=== PATIENT | female | born 1980 | race African-American/Black ===

== ENCOUNTER 2023-03-08 17:32 | Inpatient (IN) ==
--- NOTE | 2023-03-08 17:41 | ED Triage Note ---
Date of Service March 08, 2023 History of Present Illness This patient was briefly evaluated while in triage. An abbreviated physical exam was performed. This patient is a 42-year-old Female who presents to the ED for evaluation of hx of blood clot in leg and family hx of clot. Shortness of breath with steps, walking and out of breath. Started with shortness of breath 3 days ago. While making bed heart racing. Notes no history of clotting disorder. Pt. denies chance of . Physical Exam GENERAL: 42 year old female. In no acute distress. SKIN: No lesions or rashes. HEART: Regular rate and rhythm. LUNGS: Clear to auscultation. NEURO: Alert and oriented. No deficits. MUSCULOSKELETAL: No deformities to inspection of the extremities. PSYCH: Patient is pleasant and answers all questions appropriately. Initial orders for labs and / or imaging were placed and patient was placed in the waiting area until a bed is available. Please see further documentation for the full ED course.
[2023-03-08 18:19] LABS: Basophils # (auto) 0.02 K/uL (0.00-0.20); Basophils % (auto) 0.2 %; Eosinophils # (auto) 0.29 K/uL (0.00-0.50); Hematocrit (blood only) 38.4 % (37.0-47.0); Hemoglobin 12.6 g/dl (12.0-16.0); Immature Granulocytes # (auto) 0.03 K/uL (0.01-0.20); Immature Granulocytes % (auto) 0.3 %; Lymphocytes % (auto) 20.5 %; Mean Corpuscular Hemoglobin 26.7 pg (25.0-34.0); Mean Corpuscular Hgb Conc 32.8 g/dL (32.0-36.0); Mean Corpuscular Volume 81.4 fL (80.0-100.0); Monocytes % (auto) 5.1 %; Neutrophils # (auto) 6.91 K/uL (1.40-6.50); Neutrophils % (auto) 70.9 %; Platelet Count 151 K/uL (130-400); RDW Coefficient of Variation 14.2 % (11.5-14.5); RDW Standard Deviation 41.6 fL (36.4-46.3); Red Blood Count 4.72 M/uL (4.20-5.40); White Blood Count 9.75 K/ul (4.8-10.8)
[2023-03-08 18:35] LABS: BUN Creatinine Ratio 14.4 (10-20); Bilirubin,Total 0.5 mg/dl (0.2-1.0); Creatinine Clr Calc Pharmacy 103.9 ml/min; Est GFR (African American) 92.7 ml/min; Globulin 4.1 gm/dl (2.5-4.0); Magnesium 1.8 mg/dl (1.7-2.4); Potassium 3.5 mmol/L (3.5-5.1); Total Protein 8.1 gm/dl (6.0-8.3)
[2023-03-08 18:39] LABS: Troponin I High Sensitivity 48.9 pg/ml (0-14)
[2023-03-08 18:49] LABS: Thyroid Stimulating Hormone 2.663 uIu/ml (0.300-4.500)
[2023-03-08 18:58] LABS: Pregnancy Test, Serum Negative (Negative)
[2023-03-08 19:01] LABS: Partial Thromboplastin Ratio 1.1; Prothrombin Time 10.9 Seconds (9.0-12.0)
[2023-03-08] MEDS ORDERED: OPTIRAY 320 125ml IV ONE (19:04)
--- NOTE | 2023-03-08 19:47 | CT Scan Report ---
Exam(s): CTA CHEST IV Amt: 117ml EXAM: CT Angiography Chest With Intravenous Contrast CLINICAL HISTORY: Reason for exam: Dyspnea, hx of DVT. TECHNIQUE: Axial computed tomographic angiography images of the chest with intravenous contrast. CTDI is 43 mGy and DLP is 982.03 mGy-cm. Automated exposure control was utilized for the study. A dose lowering technique was utilized adhering to the principles of ALARA. MIP reconstructed images were created and reviewed. COMPARISON: No relevant prior studies available. FINDINGS: Pulmonary arteries: The pulmonary arterial tree is well opacified with contrast. There are multiple filling defects in the main left and right pulmonary artery branch points extending into all lobar branches. The clot burden is high. The RV/LV ratio is elevated measuring approximately 1.36. Aorta: The thoracic aorta is nondilated. There is no aneurysm or dissection. Lungs: Unremarkable. No mass. No consolidation. Pleural space: Unremarkable. No significant effusion. No pneumothorax. Heart: The heart is upper normal in size. No pericardial effusion. Bones/joints: Mild degenerative changes in the spine. No acute fracture or subluxation. Soft tissues: Unremarkable. Lymph nodes: Unremarkable. No enlarged lymph nodes. IMPRESSION: 1. The pulmonary arterial tree is well opacified with contrast. There are multiple filling defects in the main left and right pulmonary artery branch points extending into all lobar branches. The clot burden is high. The RV/LV ratio is elevated measuring approximately 1.36. 2. The thoracic aorta is nondilated. There is no aneurysm or dissection. Communications: Call Doctor Pulmonary Embolism Electronically signed by: Sebastian Dumont MD 03/08/23 19:45 PM
[2023-03-08] MEDS ORDERED: Heparin IV Adult Wt-Based Standard WITH Bolus Protocol IV STA (19:52)
[2023-03-08] MEDS ORDERED: HEPARIN SOD (PORCINE) 1000 UNIT/ML IV ONE (20:07)
[2023-03-08] MEDS ORDERED: SODIUM CHLORIDE 0.9% 1,000 ML IV ONE (20:07)
--- NOTE | 2023-03-08 20:10 | Emergency Department Note ---
Impression & Plan Pulmonary emboli, Elevated troponin ED Provider Note NAME: SUTART OLIVAREZ AGE: 42 SEX: F : 1980 ARRIVES VIA: Walk-In INFORMANT: Patient ED PROVIDER(S): Jonathan Watts DO CHIEF COMPLAINT: shortness of breath HPI: Patient is a 42-year-old female who presents to the ER for shortness of breath. She notes that the symptoms initially started about 3 to 4 days ago. She notes she is short of breath with doing basic activities. She consequently came in. She has noticed some chest tightness but feels this has been present much longer and closer to a month. She denies any belly pain, nausea, vomiting, or diarrhea. No dysuria, urgency, or frequency. Denies any coughing up blood, vomiting blood, urinating blood or blood in the stool. No recent surgery or trauma. No previous head bleeds. She does admit to a history of a previous DVT in the right calf within the past year. She was on a blood thinner for 3 months and then stopped. She does admit to recent trips to [place] in [place] since November. No control. Additional history was obtained by who confirms the blood thinner and DVT within the past year. ADDITIONAL HISTORY OBTAINED: Per HPI Chronic Medical/Social Conditions Affecting Care: Per HPI PAST MEDICAL HISTORY:See Below PAST SURGICAL HISTORY:See Below FAMILY HISTORY:See Below SOCIAL HISTORY:See Below HOME MEDICATIONS:See Below ALLERGIES:See Below VITALS:See Below PHYSICAL EXAMINATION: GENERAL: Sitting up in bed, alert, well appearing, well nourished, no distress, non-toxic EYE EXAM: normal conjunctiva. OROPHARYNX: no exudate, no erythema, lips, buccal mucosa, and tongue normal and mucous membranes are moist NECK: supple, no nuchal rigidity, no adenopathy, non-tender LUNGS: Clear to auscultation. Normal chest wall mechanics HEART: no murmurs, S1 normal and S2 normal ABDOMEN: abdomen soft, non-tender, normo-active bowel sounds, no masses, no rebound or guarding. BACK: Back is symmetrical on inspection and there is no deformity, no midline tenderness, no CVA tenderness. SKIN: no rashes and no bruising UPPER EXTREMITIES: upper extremities are grossly normal. LOWER EXTREMITIES: No pitting edema. NEURO EXAM: Normal sensorium, cranial nerves II-XII grossly intact, normal speech, no gross weakness of arms, no gross weakness of legs. MEDICAL DECISION MAKING: Patient is a 42-year-old female with a past medical history of a previous DVT within the past year who presents the ER for shortness of breath and chest pain. IV was established blood was obtained. Labs show no significant leukocytosis or anemia. INR unremarkable. BMP was unremarkable. LFTs bilirubin were normal. Troponin was elevated at 48. BNP at 84. hCG was negative. TSH was unremarkable. CT angio of the chest shows extensive bilateral PEs but no saddle. Patient has no bleeding risk factors and tolerated blood thinners well within the past year. She was placed on heparin and given a heparin bolus and placed on heparin drip. Patient was updated at bedside. Discussed the case with the hospitalist for further evaluation management treatment External Records Reviewed: None Consults/Care Managements Discussions: Per [facility] Triage Nursing notes reviewed. Limited review of prior medical records performed Vital Signs: reviewed and remarkable for tachycardic Differential diagnosis: Cardiac ischemia, aortic dissection, pulmonary embolism, pneumothorax, pneumonia, pericarditis, myocarditis, esophageal rupture, GERD, cholecystitis, pancreatitis, musculoskeletal, as well as other pathologies. ER treatment provided: See below Diagnostics interpreted by me include EKG and cardiac monitoring as listed below: -Cardiac Monitoring: An order was placed for continuous cardiac monitoring. The monitor shows a rate of 89 with sinus rhythm. -ECG: Sinus rhythm rate of 95 Normal axis No PVCs QTc 487 -Laboratory studies:Interpreted by me as stated above in MDM and shown below. Imaging studies: Xrays: As interpreted by me:none CTs show: CT angio of the chest shows extensive bilateral PEs per my interpretation CT angio chest shows bilateral PEs Procedures:none Critical Care: I have personally spent 40 minutes of critical care time in the direct management of this patient. This includes bedside care, interpretation of diagnostic studies, and testing, discussion with consultants, patient, and family members, and other required patient management activities. This 40 minutes is in excess of all separately billable procedures. Past Med/Surg History Medical History DVT (deep venous thrombosis) Surgical History No pertinent past surgical history Family History Other Hypertension Pancreatic cancer Social History Smoking Status: Never smoker Hx Alcohol Use: Yes Alcohol Intake Frequency: 2-4 x/Month Preferred Language: Liberian Feels Safe at Home: Yes Allergies Allergies Allergy/AdvReac Type Severity Reaction Status Date / Time No Known Allergies Allergy Verified 03/08/23 20:18 Home Meds Home Medications Medication Instructions Recorded Confirmed Msm Powder 1 dose PO DAILY 03/08/23 03/08/23 ascorbic acid (vitamin C) 500 mg 500 mg PO DAILY 03/08/23 03/08/23 tablet (Vitamin C) multivitamin 1 tab PO DAILY 03/08/23 03/08/23 Results & Data (ED) Vital Signs Vital Signs - 24 hr 03/08/23 17:37 03/08/23 20:00 03/08/23 20:01 Temperature 36.5 C Temperature Source Temporal Artery Scan Pulse Rate 118 H 93 H Pulse Rate [Apical] 87 Pulse Rate from SpO2 Sensor 100 H Respiratory Rate 20 20 22 Respiratory Effort / Characteristics Non-Labored Spontaneous Non-Labored Respiratory Depth Normal Blood Pressure 138/97 Blood Pressure [Right Arm] 132/81 Blood Pressure Mean 110 Blood Pressure Mean [Right Arm] 98 Blood Pressure Position Sitting Pulse Oximetry 96 98 96 Oxygen Delivery Method Room Air Room Air Sepsis Recent Fever Within 48 Hours No Sepsis New/Unexplained Change in Mental Status No Sepsis Action Taken by Nursing No Action Required 03/08/23 20:02 03/08/23 20:13 Temperature Temperature Source Pulse Rate 100 H Pulse Rate [Apical] Pulse Rate from SpO2 Sensor Respiratory Rate Respiratory Effort / Characteristics Respiratory Depth Blood Pressure Blood Pressure [Right Arm] Blood Pressure Mean Blood Pressure Mean [Right Arm] Blood Pressure Position Pulse Oximetry 98 Oxygen Delivery Method Room Air Sepsis Recent Fever Within 48 Hours Sepsis New/Unexplained Change in Mental Status Sepsis Action Taken by Nursing Laboratory Data 03/08/23 17:57 03/08/23 17:57 Lab Results 03/08/23 Range/Units 17:57 WBC 9.75 (4.8-10.8) K/ul RBC 4.72 (4.20-5.40) M/uL Hgb 12.6 (12.0-16.0) g/dl Hct 38.4 (37.0-47.0) % MCV 81.4 (80.0-100.0) fL MCH 26.7 (25.0-34.0) pg MCHC 32.8 (32.0-36.0) g/dL RDW Std Deviation 41.6 (36.4-46.3) fL RDW Coeff of Joaquim 14.2 (11.5-14.5) % Plt Count 151 (130-400) K/uL MPV 11.0 (9.4-12.4) fL Immature Gran % (Auto) 0.3 % Neut % (Auto) 70.9 % Lymph % (Auto) 20.5 % Yell % (Auto) 5.1 % Eos % (Auto) 3.0 % Baso % (Auto) 0.2 % Neut # (Auto) 6.91 H (1.40-6.50) K/uL Lymph # (Auto) 2.00 (1.20-3.40) K/uL Yell # (Auto) 0.50 (0.11-0.59) K/uL Eos # (Auto) 0.29 (0.00-0.50) K/uL Baso # (Auto) 0.02 (0.00-0.20) K/uL Immature Gran # (Auto) 0.03 (0.01-0.20) K/uL PT 10.9 (9.0-12.0) Seconds INR 1.0 (0.9-1.1) APTT 31.0 (21.0-31.0) Seconds PTT Ratio 1.1 Sodium 137 (136-145) mmol/L Potassium 3.5 (3.5-5.1) mmol/L Chloride 106 (98-107) mmol/L Carbon Dioxide 24 (21-32) mmol/L Anion Gap 7 (3-11) BUN 13 (6-23) mg/dl Creatinine 0.90 (0.6-1.2) mg/dl Est Cr Clr Drug Dosing 103.9 ml/min Est GFR ( Amer) 92.7 ml/min Est GFR (Non-Af Amer) 80.0 ml/min BUN/Creatinine Ratio 14.4 (10-20) Glucose 100 H (70-99(Fasting)) mg/dl Calcium 9.0 (8.6-10.3) mg/dl Magnesium 1.8 (1.7-2.4) mg/dl Total Bilirubin 0.5 (0.2-1.0) mg/dl AST 13 (13-39) U/L ALT 9 (7-52) U/L Alkaline Phosphatase 80 (34-104) U/L Troponin I High Sens 48.9 H (0-14) pg/ml B-Natriuretic Peptide 84 (0-100) pg/ml Total Protein 8.1 (6.0-8.3) gm/dl Albumin 4.0 (3.4-5.0) gm/dl Globulin 4.1 H (2.5-4.0) gm/dl Albumin/Globulin Ratio 1.0 (0.9-2) TSH 2.663 (0.300-4.500) uIu/ml HCG, Qual Negative (Negative) Administered Medications Heparin Sodium/Dextrose (Heparin Sodium/Dextrose) 25,000 units in 500 mls @ 28 mls/hr IV .[id number] MYRA; Protocol Stop: 04/07/23 20:14 Last Admin: 03/08/23 20:15 Dose: 1,400 units/hr, 28 mls/hr Documented By: AMANDA Co-signed By: ANSHUL Discontinued Medications Heparin Sodium (Porcine) (Heparin Sod (Porcine) 1000 Unit/Ml) 1 units IV NOW ONE Stop: 03/08/23 20:08 Last Admin: 03/08/23 20:31 Dose: 1 units Documented By: ANSHUL Co-signed By: Heparin Sodium (Porcine) (Heparin Ivp From Ufh Protocol (With Bolus)) 6,000 units IV NOW ONE Stop: 03/08/23 20:16 Last Admin: 03/08/23 20:15 Dose: 6,000 units Documented By: AMANDA Co-signed By: ANSHUL Heparin Sodium/Dextrose (Heparin Iv Adult Wt-Based Standard With Bolus Protocol) 1 each IV NOW STA; Protocol Stop: 03/08/23 19:53 Last Admin: 03/08/23 20:31 Dose: 1 each Documented By: ANSHUL Sodium Chloride (Nss) 1,000 mls @ 999 mls/hr IV .[id number] ONE Stop: 03/08/23 21:07 Last Admin: 03/08/23 20:24 Dose: 999 mls/hr Documented By: AMANDA Ioversol (Optiray 320 125ml) 117 ml IV ONCE ONE Stop: 03/08/23 19:05 Last Admin: 03/08/23 19:04 Dose: 117 ml Documented By: DEISY Imaging Data Radiologist's Impression: Chest CTA 03/08/23 17:42 CR Exam(s): CTA CHEST IV Amt: 117ml EXAM: CT Angiography Chest With Intravenous Contrast CLINICAL HISTORY: Reason for exam: Dyspnea, hx of DVT. TECHNIQUE: Axial computed tomographic angiography images of the chest with intravenous contrast. CTDI is 43 mGy and DLP is 982.03 mGy-cm. Automated exposure control was utilized for the study. A dose lowering technique was utilized adhering to the principles of ALARA. MIP reconstructed images were created and reviewed. COMPARISON: No relevant prior studies available. FINDINGS: Pulmonary arteries: The pulmonary arterial tree is well opacified with contrast. There are multiple filling defects in the main left and right pulmonary artery branch points extending into all lobar branches. The clot burden is high. The RV/LV ratio is elevated measuring approximately 1.36. Aorta: The thoracic aorta is nondilated. There is no aneurysm or dissection. Lungs: Unremarkable. No mass. No consolidation. Pleural space: Unremarkable. No significant effusion. No pneumothorax. Heart: The heart is upper normal in size. No pericardial effusion. Bones/joints: Mild degenerative changes in the spine. No acute fracture or subluxation. Soft tissues: Unremarkable. Lymph nodes: Unremarkable. No enlarged lymph nodes. IMPRESSION: 1. The pulmonary arterial tree is well opacified with contrast. There are multiple filling defects in the main left and right pulmonary artery branch points extending into all lobar branches. The clot burden is high. The RV/LV ratio is elevated measuring approximately 1.36. 2. The thoracic aorta is nondilated. There is no aneurysm or dissection. Communications: Call Doctor Pulmonary Embolism Electronically signed by: Sebastian Dumont MD 03/08/23 19:45 PM Discharge Plan Visit Data Chief Complaint: Shortness of Breath/Dyspnea Stated Complaint: SOB, CHEST PRESSURE, HEART RACING ED Provider: Jonathan Watts Discharge Problem: Pulmonary emboli, Elevated troponin Forms Stand Alone Forms: My [facility] Prescriptions Prescriptions: No Action multivitamin Tablet 1 tab PO DAILY ascorbic acid (vitamin C) [Vitamin C] 500 mg Tablet 500 mg PO DAILY Msm Powder 1 dose PO DAILY Rx Instructions: MIXES 1/4 TSP IN FLUID QAM. Referrals Referrals: PCP,NO [Primary Care Provider] -
[2023-03-08] MEDS ORDERED: Heparin IVP from UFH Protocol (WITH Bolus) IV ONE (20:15)
[2023-03-08] MEDS ORDERED: HEPARIN SODIUM/DEXTROSE 25,000 UNITS/500 ML BAG IV SCH (20:15)
[2023-03-08] MEDS ORDERED: MAGNESIUM SULFATE / D5W 1 GM/100 ML BAG IV ONE (20:33)
[2023-03-08] MEDS ORDERED: POTASSIUM CHLORIDE CRTAB 20 MEQ TABCR PO STA (20:33)
[2023-03-08] MEDS ORDERED: NSS + 20MEQ KCL 20 MEQ/1,000 ML BAG IV ONE (20:34)
--- NOTE | 2023-03-08 21:24 | History & Physical Report ---
Date of Service March 08, 2023 Assessment & Plan (1) Pulmonary emboli: (2) Elevated troponin: (3) Morbid obesity with BMI of 45.0-49.9, adult: Plan This is a 42yo F with a PMH of RLE DVT, obesity who presents with shortness of breath over the past 3-4 days and was found to have extensive pulmonary emboli. Please see Dr. Parker's addendum for plan details. History of Present Illness Chief Complaint: SOB Primary Care Provider: Dr. Pyle This is a 42yo F with a PMH of RLE DVT, obesity who presents with shortness of breath over the past 3-4 days. Feels notably short of breath even while doing basic activities and feels like she cannot get enough air even with stopping to take deep breaths. Has some associated chest tightness. Has a sedentary job and endorses recent travel but it was only 3-[address] to [place] and [place]. Is not on control. Does have history of a RLE DVT diagnosed in Apr 2021 that she completed 6 months of Xarelto for and at that time repeat doppler without acute DVT. Factor V leiden: not detected. Father with history of May Thurner Syndrome on lifelong anticoagulation, per chart review. Aunt is also on anticoagulation but she is not sure of underlying reason. No F/C, lightheadedness, wheezing, N/V, abdominal pain, dysuria, diarrhea or constipation. Allergies Allergy/AdvReac Type Severity Reaction Status Date / Time No Known Allergies Allergy Verified 03/08/23 20:18 Home Medications Medication Instructions Recorded Confirmed Type Msm Powder 1 dose PO DAILY 03/08/23 03/08/23 History ascorbic acid (vitamin C) 500 mg 500 mg PO DAILY 03/08/23 03/08/23 History tablet (Vitamin C) multivitamin 1 tab PO DAILY 03/08/23 03/08/23 History Past Med/Surg History Medical History DVT (deep venous thrombosis) Surgical History No pertinent past surgical history Family History (Updated 03/08/23 @ 22:40 by Cherie Dumont PA-C) Other H/O hypercoagulable state Hypertension Pancreatic cancer Social History Smoking Status: Never smoker Second Hand Exposure: No; Do You Dip or Chew Tobacco: No; Hx Alcohol Use: Yes Alcohol type: beer Alcohol Intake Frequency: 2-4 x/Month Hx Substance Use: No Preferred Language: Samoan Communication Ability: Effective Assistant Secretary Required: No Beliefs That Will Affect Care: None Current Living Situation: Spouse and Family Current Living Situation Comment: at home with and 2 children Other Information That Helps Us Care for You: No Feels Safe at Home: Yes Safety Concerns: Feels Safe At This Time Assistive Devices: None Review of Systems Review of Systems: At least ten systems reviewed and negative except as noted in the HPI. Physical Exam Physical Exam: General Appearance: WD/WN, vitals as above, NAD, sitting up in bed, pleasant, obese, conversational dyspnea Head: normocephalic, atraumatic Eyes: normal inspection, PERRL, conjunctivae normal, anicteric sclerae ENT: external ear and nose normal, oropharynx normal Neck: normal visual inspection, trachea midline, no thyromegaly Respiratory: increased respiratory effort, lungs clear to auscultation, no wheeze, rales, rhonchi. No accessory muscle use Cardiovascular: regular rate, rhythm, no murmur, normal peripheral pulses, no BLE edema. Vessels: no JVD Chest: normal inspection of chest Abdomen/GI: normal bowel sounds, soft, nontender, no hepatosplenomegaly Extremities/Musculoskeletal: no cyanosis or clubbing, extremities motor strength 5/5 Neurologic: PERRL, EOMI, accommodation nl, no face palsy, no dysarthria, CN's II-XI intact bilaterally and moves all extremities Psychiatric: A+Ox3, euthymic affect Skin: no rashes, normal color, warm/dry Results & Data Results & Data Vital Signs (Past 12 Hours) Vital Signs Temp Pulse Pulse Resp BP BP Pulse Ox 03/08/23 20:13 100 H 03/08/23 20:02 98 03/08/23 20:01 93 H 22 96 03/08/23 20:00 87 20 132/81 98 03/08/23 17:37 36.5 C 118 H 20 138/97 96 O2 Del Method 03/08/23 20:13 03/08/23 20:02 Room Air 03/08/23 20:01 03/08/23 20:00 Room Air 03/08/23 17:37 Room Air Laboratory Results Short CBC 03/08/23 Range/Units 17:57 WBC 9.75 (4.8-10.8) K/ul Hgb 12.6 (12.0-16.0) g/dl Hct 38.4 (37.0-47.0) % Plt Count 151 (130-400) K/uL BMP 03/08/23 17:57 Sodium 137 Potassium 3.5 Chloride 106 Carbon Dioxide 24 BUN 13 Creatinine 0.90 Glucose 100 H Calcium 9.0 Liver Function 03/08/23 Range/Units 17:57 Total Bilirubin 0.5 (0.2-1.0) mg/dl AST 13 (13-39) U/L ALT 9 (7-52) U/L Alkaline Phosphatase 80 (34-104) U/L Albumin 4.0 (3.4-5.0) gm/dl Diagnostic Findings Chest CTA 03/08/23 17:42 CR Exam(s): CTA CHEST IV Amt: 117ml EXAM: CT Angiography Chest With Intravenous Contrast CLINICAL HISTORY: Reason for exam: Dyspnea, hx of DVT. TECHNIQUE: Axial computed tomographic angiography images of the chest with intravenous contrast. CTDI is 43 mGy and DLP is 982.03 mGy-cm. Automated exposure control was utilized for the study. A dose lowering technique was utilized adhering to the principles of ALARA. MIP reconstructed images were created and reviewed. COMPARISON: No relevant prior studies available. FINDINGS: Pulmonary arteries: The pulmonary arterial tree is well opacified with contrast. There are multiple filling defects in the main left and right pulmonary artery branch points extending into all lobar branches. The clot burden is high. The RV/LV ratio is elevated measuring approximately 1.36. Aorta: The thoracic aorta is nondilated. There is no aneurysm or dissection. Lungs: Unremarkable. No mass. No consolidation. Pleural space: Unremarkable. No significant effusion. No pneumothorax. Heart: The heart is upper normal in size. No pericardial effusion. Bones/joints: Mild degenerative changes in the spine. No acute fracture or subluxation. Soft tissues: Unremarkable. Lymph nodes: Unremarkable. No enlarged lymph nodes. IMPRESSION: 1. The pulmonary arterial tree is well opacified with contrast. There are multiple filling defects in the main left and right pulmonary artery branch points extending into all lobar branches. The clot burden is high. The RV/LV ratio is elevated measuring approximately 1.36. 2. The thoracic aorta is nondilated. There is no aneurysm or dissection. Communications: Call Doctor Pulmonary Embolism Electronically signed by: Sebastian Dumont MD 03/08/23 19:45 PM Supervising Physician Co-Signing Physician Notes IM ATTENDING : Patient seen and examined. History obtained from patient, family, and records. Preceding documentation by Ms. Cherie Dumont PA-C reviewed. FINAL ASSESSMENT AND PLAN as follows : Acute pulmonary emboli Past history RLE DVT status post Xarelto Probable hypercoagulable state given family history of blood clots Rule out recurrent LE clot as source Morbid obesity Medical telemetry IV heparin Patient requesting to be discharged on Xarelto given good tolerance with past history DVT LE venous Dopplers rule out DVT Outpatient Hematology consult for recurrent thromboembolism DVT prophylaxis. Heparin Full code Text document was generated using [employer] voice recognition software. It may contain grammatical or spelling errors. Kindly contact undersigned for clarification of any documentation item in question.
[2023-03-08] MEDS ORDERED: traMADol HCL 50 MG TABLET PO PRN (22:02)
[2023-03-08] MEDS ORDERED: LORazepam 0.5 MG TAB PO PRN (22:02)
[2023-03-08] MEDS ORDERED: PROMETHAZINE HCL 12.5 MG in SODIUM CHLORIDE 0.9% 50 ML IV PRN (22:02)
--- NOTE | 2023-03-08 23:31 | Ultrasound Report ---
Exam(s): US VENOUS BILATERAL LOWER EXTREMITIES EXAM: US Duplex Bilateral Lower Extremities Veins CLINICAL HISTORY: Reason for exam: leg swelling. TECHNIQUE: Real-time duplex ultrasound scan of the bilateral lower extremity veins integrating B-mode two-dimensional vascular structure, Doppler spectral analysis, color flow Doppler imaging and compression. COMPARISON: No relevant prior studies available. FINDINGS: Right deep veins: There is chronic appearing thrombosis of 1 of the 2 paired right posterior tibial veins. Right superficial veins: Unremarkable. No thrombus in the visualized right great saphenous vein. Left deep veins: Small amount of nonocclusive chronic appearing thrombus in the left femoral vein inferiorly and left popliteal vein. No acute appearing DVT is identified. Left superficial veins: Unremarkable. No thrombus in the visualized left great saphenous vein. Soft tissues: There is a Falcon's cyst measuring approximate 3.2 cm in the right popliteal fossa. IMPRESSION: 1. There is chronic appearing thrombosis of 1 of the 2 paired right posterior tibial veins. 2. Small amount of nonocclusive chronic appearing thrombus in the left femoral vein inferiorly and left popliteal vein. No acute appearing DVT is identified. 3. There is a Falcon's cyst measuring approximate 3.2 cm in the right popliteal fossa. Electronically signed by: Sebastian Dumont MD 03/08/23 23:29 PM
[2023-03-09] MEDS ORDERED: ACETAMINOPHEN 325 MG TAB PO PRN (00:38)
[2023-03-09 02:24] LABS: Basophils # (auto) 0.03 K/uL (0.00-0.20); Basophils % (auto) 0.3 %; Eosinophils # (auto) 0.32 K/uL (0.00-0.50); Eosinophils % (auto) 3.4 %; Hematocrit (blood only) 34.3 % (37.0-47.0); Hemoglobin 11.3 g/dl (12.0-16.0); Immature Granulocytes # (auto) 0.03 K/uL (0.01-0.20); Immature Granulocytes % (auto) 0.3 %; Lymphocytes # (auto) 2.43 K/uL (1.20-3.40); Lymphocytes % (auto) 25.8 %; Mean Corpuscular Hemoglobin 26.7 pg (25.0-34.0); Mean Corpuscular Hgb Conc 32.9 g/dL (32.0-36.0); Mean Corpuscular Volume 81.1 fL (80.0-100.0); Mean Platelet Volume 10.4 fL (9.4-12.4); Monocytes # (auto) 0.56 K/uL (0.11-0.59); Monocytes % (auto) 5.9 %; Neutrophils # (auto) 6.06 K/uL (1.40-6.50); Neutrophils % (auto) 64.3 %; Platelet Count 132 K/uL (130-400); RDW Coefficient of Variation 13.9 % (11.5-14.5); RDW Standard Deviation 40.7 fL (36.4-46.3); Red Blood Count 4.23 M/uL (4.20-5.40); White Blood Count 9.43 K/ul (4.8-10.8)
[2023-03-09 02:41] LABS: BUN Creatinine Ratio 11.8 (10-20); Calcium 8.3 mg/dl (8.6-10.3); Creatinine Clr Calc Pharmacy 123.1 ml/min; Est GFR (African American) 113.7 ml/min; Est GFR (Non-African American) 98.1 ml/min
[2023-03-09 02:48] LABS: Partial Thromboplastin Ratio 2.6
[2023-03-09] MEDS: MULTIVITAMIN TAB PO SCH (08:29)
[2023-03-09 09:17] LABS: Partial Thromboplastin Ratio 1.9
[2023-03-09 09:21] LABS: Partial Thromboplastin Time 53.6 Seconds (21.0-31.0)
[2023-03-09] MEDS ORDERED: ENOXAPARIN 1 MG/KG SQ SCH (13:30)
[2023-03-09 15:13] LABS: Partial Thromboplastin Ratio 1.2; Partial Thromboplastin Time 33.9 Seconds (21.0-31.0)
--- NOTE | 2023-03-09 15:25 | Hospitalist Progress Note ---
Date of Service March 09, 2023 Assessment & Plan (1) Pulmonary emboli: (2) Elevated troponin: (3) Morbid obesity with BMI of 45.0-49.9, adult: (4) Pulmonary hypertension: Plan This is a 42yo F with a PMH of RLE DVT, obesity who presents with shortness of breath over the past 3-4 days and was found to have extensive pulmonary emboli. CTA chest personally reviewed; multiple filling defects present in main left and right pulmonary artery extending into all lobar branches. High sensitive troponin elevated to 48.9, down trended to 19.5 EKG personally reviewed; sinus rhythm with occasional PVCs. QTc of 487 Echocardiogram suggestive of right heart strain. Severe pulmonary hypertension present with pulmonary artery systolic pressure of 70 to 75 mmHg. Venous duplex shows chronic appearing thrombosis in right posterior tibial veins. Also present in left femoral vein and left popliteal vein. Discussed with cardiology regarding the finding of the echocardiogram. Patient will need outpatient echocardiogram in 3 months to follow-up on severe pulmonary hypertension. Patient will likely need lifelong anticoagulation for the bilateral unprovoked PE Continue on Lovenox while inpatient. Continue to monitor on telemetry Xarelto prescription sent to the pharmacy. patient will need age-appropriate cancer screening as outpatient as well as hematology referral for hypercoagulable workup. Full code DVT prophylaxis Lovenox Dispositionpatient hospitalized for bilateral extensive PE with right heart strain requiring closer inpatient monitoring. Possible DC in a.m. Depending on clinical course. Time spent evaluating patient, direct bedside care, chart review, placing orders, interpretation of diagnostic studies, discussion with consultants, patient, and family members, as well as other required patient management activities is 50 minutes Please note the above document was generated using voice recognition software. It may contain grammatical, syntax or spelling errors. Any formal questions or concerns about the content, text or information contained within the body of this dictation should be directly addressed to the provider for clarification Admission and Anticipated Discharge Date Admission Date: March 08, 2023 Subjective Patient seen and examined at bedside. She is sitting on the bed; denies any shortness of breath or chest pain. Telemetry shows sinus tachycardia Review of Systems Review of Systems: All systems reviewed & are unremarkable except as noted in Subjective Physical Exam Physical Exam: Constitutional: Alert orient x 3, morbidly obese. Respiratory: normal respiratory effort, lungs clear to auscultation, no wheeze, rales, rhonchi. Normal insp/exp effort, no accessory muscle use Cardiovascular: RRR, no murmur, no edema Vessels: no JVD or carotid bruit Chest: normal inspection of chest Abdomen: normal bowel sounds, soft, nontender, no hepatosplenomegaly Musculoskeletal: no cyanosis or clubbing, extremities motor strength 5/5 Skin: no rashes, warm and dry normal turgor Neurologic: PERRL, EOMI, accommodation nl, no face palsy, no dysarthria CN's II- XI intact bilaterally and moves all extremities Psychiatric: A+Ox3, euthymic affect Results & Data Results & Data Vital Signs (Past 12 Hours) Vital Signs Pulse Pulse Resp BP BP Pulse Ox O2 Del Method 03/09/23 10:28 127/89 03/09/23 10:09 115 H 20 93 Room Air 03/09/23 08:34 79 16 98 Room Air 03/09/23 08:01 82 03/09/23 06:00 89 23 136/92 100 Room Air 03/09/23 05:00 87 22 125/87 93 Room Air 03/09/23 04:00 99 H 23 134/89 97 Room Air Laboratory Results Laboratory Results WBC 9.43 K/ul (4.8-10.8) 03/09/23 02:16 RBC 4.23 M/uL (4.20-5.40) 03/09/23 02:16 Hgb 11.3 g/dl (12.0-16.0) L 03/09/23 02:16 Hct 34.3 % (37.0-47.0) L 03/09/23 02:16 MCV 81.1 fL (80.0-100.0) 03/09/23 02:16 MCH 26.7 pg (25.0-34.0) 03/09/23 02:16 MCHC 32.9 g/dL (32.0-36.0) 03/09/23 02:16 RDW Std Deviation 40.7 fL (36.4-46.3) 03/09/23 02:16 RDW Coeff of Joaquim 13.9 % (11.5-14.5) 03/09/23 02:16 Plt Count 132 K/uL (130-400) 03/09/23 02:16 MPV 10.4 fL (9.4-12.4) 03/09/23 02:16 Immature Gran % (Auto) 0.3 % 03/09/23 02:16 Neut % (Auto) 64.3 % 03/09/23 02:16 Lymph % (Auto) 25.8 % 03/09/23 02:16 [place] % (Auto) 5.9 % 03/09/23 02:16 Eos % (Auto) 3.4 % 03/09/23 02:16 Baso % (Auto) 0.3 % 03/09/23 02:16 Neut # (Auto) 6.06 K/uL (1.40-6.50) 03/09/23 02:16 Lymph # (Auto) 2.43 K/uL (1.20-3.40) 03/09/23 02:16 [place] # (Auto) 0.56 K/uL (0.11-0.59) 03/09/23 02:16 Eos # (Auto) 0.32 K/uL (0.00-0.50) 03/09/23 02:16 Baso # (Auto) 0.03 K/uL (0.00-0.20) 03/09/23 02:16 Immature Gran # (Auto) 0.03 K/uL (0.01-0.20) 03/09/23 02:16 PT 10.9 Seconds (9.0-12.0) 03/08/23 17:57 INR 1.0 (0.9-1.1) 03/08/23 17:57 APTT 33.9 Seconds (21.0-31.0) H 03/09/23 14:15 PTT Ratio 1.2 03/09/23 14:15 Sodium 137 mmol/L (136-145) 03/09/23 02:16 Potassium 4.0 mmol/L (3.5-5.1) 03/09/23 02:16 Chloride 110 mmol/L (98-107) H 03/09/23 02:16 Carbon Dioxide 21 mmol/L (21-32) 03/09/23 02:16 Anion Gap 6 (3-11) 03/09/23 02:16 BUN 9 mg/dl (6-23) 03/09/23 02:16 Creatinine 0.76 mg/dl (0.6-1.2) 03/09/23 02:16 Est Cr Clr Drug Dosing 123.1 ml/min 03/09/23 02:16 Est GFR ( Amer) 113.7 ml/min 03/09/23 02:16 Est GFR (Non-Af Amer) 98.1 ml/min 03/09/23 02:16 BUN/Creatinine Ratio 11.8 (10-20) 03/09/23 02:16 Glucose 102 mg/dl (70-99(Fasting)) H 03/09/23 02:16 Calcium 8.3 mg/dl (8.6-10.3) L 03/09/23 02:16 Magnesium 1.8 mg/dl (1.7-2.4) 03/08/23 17:57 Total Bilirubin 0.5 mg/dl (0.2-1.0) 03/08/23 17:57 AST 13 U/L (13-39) 03/08/23 17:57 ALT 9 U/L (7-52) 03/08/23 17:57 Alkaline Phosphatase 80 U/L (34-104) 03/08/23 17:57 Troponin I High Sens 19.5 pg/ml (0-14) H D 03/09/23 09:55 B-Natriuretic Peptide 84 pg/ml (0-100) 03/08/23 17:57 Total Protein 8.1 gm/dl (6.0-8.3) 03/08/23 17:57 Albumin 4.0 gm/dl (3.4-5.0) 03/08/23 17:57 Globulin 4.1 gm/dl (2.5-4.0) H 03/08/23 17:57 Albumin/Globulin Ratio 1.0 (0.9-2) 03/08/23 17:57 TSH 2.663 uIu/ml (0.300-4.500) 03/08/23 17:57 HCG, Qual Negative (Negative) 03/08/23 17:57 Impressions Chest CTA 03/08/23 17:42 CR Exam(s): CTA CHEST IV Amt: 117ml EXAM: CT Angiography Chest With Intravenous Contrast CLINICAL HISTORY: Reason for exam: Dyspnea, hx of DVT. TECHNIQUE: Axial computed tomographic angiography images of the chest with intravenous contrast. CTDI is 43 mGy and DLP is 982.03 mGy-cm. Automated exposure control was utilized for the study. A dose lowering technique was utilized adhering to the principles of ALARA. MIP reconstructed images were created and reviewed. COMPARISON: No relevant prior studies available. FINDINGS: Pulmonary arteries: The pulmonary arterial tree is well opacified with contrast. There are multiple filling defects in the main left and right pulmonary artery branch points extending into all lobar branches. The clot burden is high. The RV/LV ratio is elevated measuring approximately 1.36. Aorta: The thoracic aorta is nondilated. There is no aneurysm or dissection. Lungs: Unremarkable. No mass. No consolidation. Pleural space: Unremarkable. No significant effusion. No pneumothorax. Heart: The heart is upper normal in size. No pericardial effusion. Bones/joints: Mild degenerative changes in the spine. No acute fracture or subluxation. Soft tissues: Unremarkable. Lymph nodes: Unremarkable. No enlarged lymph nodes. IMPRESSION: 1. The pulmonary arterial tree is well opacified with contrast. There are multiple filling defects in the main left and right pulmonary artery branch points extending into all lobar branches. The clot burden is high. The RV/LV ratio is elevated measuring approximately 1.36. 2. The thoracic aorta is nondilated. There is no aneurysm or dissection. Communications: Call Doctor Pulmonary Embolism Electronically signed by: Sebastian Dumont MD 03/08/23 19:45 PM Venous Doppler Study 03/08/23 21:06 Exam(s): US VENOUS BILATERAL LOWER EXTREMITIES EXAM: US Duplex Bilateral Lower Extremities Veins CLINICAL HISTORY: Reason for exam: leg swelling. TECHNIQUE: Real-time duplex ultrasound scan of the bilateral lower extremity veins integrating B-mode two-dimensional vascular structure, Doppler spectral analysis, color flow Doppler imaging and compression. COMPARISON: No relevant prior studies available. FINDINGS: Right deep veins: There is chronic appearing thrombosis of 1 of the 2 paired right posterior tibial veins. Right superficial veins: Unremarkable. No thrombus in the visualized right great saphenous vein. Left deep veins: Small amount of nonocclusive chronic appearing thrombus in the left femoral vein inferiorly and left popliteal vein. No acute appearing DVT is identified. Left superficial veins: Unremarkable. No thrombus in the visualized left great saphenous vein. Soft tissues: There is a Falcon's cyst measuring approximate 3.2 cm in the right popliteal fossa. IMPRESSION: 1. There is chronic appearing thrombosis of 1 of the 2 paired right posterior tibial veins. 2. Small amount of nonocclusive chronic appearing thrombus in the left femoral vein inferiorly and left popliteal vein. No acute appearing DVT is identified. 3. There is a Falcon's cyst measuring approximate 3.2 cm in the right popliteal fossa. Electronically signed by: Sebastian Dumont MD 03/08/23 23:29 PM
[2023-03-09] MEDS: ENOXAPARIN INJ 120 MG/0.8 ML SYR SQ SCH (15:33)
[2023-03-10] MEDS: ENOXAPARIN INJ 120 MG/0.8 ML SYR SQ SCH (02:06)
--- NOTE | 2023-03-10 07:07 | Electrocardiogram Report ---
Test Reason : Blood Pressure : / mmHG Vent. Rate : 095 BPM Atrial Rate : 095 BPM P-R Int : 162 ms QRS Dur : 072 ms QT Int : 388 ms P-R-T Axes : 038 007 040 degrees QTc Int : 487 ms Sinus rhythm Low voltage QRS Prolonged QT Abnormal ECG No previous ECGs available Confirmed by Car Phillips ([id number]) on 03/10/2023 7:07:27 AM Referred By: REFERRED SELF Confirmed By:Car Phillips
[2023-03-10 07:15] LABS: Basophils # (auto) 0.04 K/uL (0.00-0.20); Basophils % (auto) 0.6 %; Eosinophils # (auto) 0.31 K/uL (0.00-0.50); Eosinophils % (auto) 4.3 %; Hematocrit (blood only) 36.4 % (37.0-47.0); Immature Granulocytes # (auto) 0.04 K/uL (0.01-0.20); Immature Granulocytes % (auto) 0.6 %; Lymphocytes # (auto) 2.02 K/uL (1.20-3.40); Lymphocytes % (auto) 27.9 %; Mean Corpuscular Hemoglobin 26.4 pg (25.0-34.0); Mean Corpuscular Volume 80.2 fL (80.0-100.0); Mean Platelet Volume 10.9 fL (9.4-12.4); Monocytes # (auto) 0.47 K/uL (0.11-0.59); Monocytes % (auto) 6.5 %; Neutrophils # (auto) 4.36 K/uL (1.40-6.50); Neutrophils % (auto) 60.1 %; Platelet Count 149 K/uL (130-400); RDW Coefficient of Variation 14.1 % (11.5-14.5); RDW Standard Deviation 41.1 fL (36.4-46.3); Red Blood Count 4.54 M/uL (4.20-5.40); White Blood Count 7.24 K/ul (4.8-10.8)
[2023-03-10 07:41] LABS: BUN Creatinine Ratio 8.7 (10-20); Creatinine Clr Calc Pharmacy 101.2 ml/min; Est GFR (African American) 90.3 ml/min; Est GFR (Non-African American) 77.9 ml/min; Potassium 4.1 mmol/L (3.5-5.1)
[2023-03-10] MEDS: MULTIVITAMIN TAB PO SCH (08:42)
[2023-03-10] MEDS ORDERED: RIVAROXABAN 15 MG TAB PO SCH (09:00)
--- NOTE | 2023-03-10 12:41 | Discharge Summary ---
Date of Service March 10, 2023 Admission HPI Per Admitting Provider This is a 42yo F with a PMH of RLE DVT, obesity who presents with shortness of breath over the past 3-4 days. Feels notably short of breath even while doing basic activities and feels like she cannot get enough air even with stopping to take deep breaths. Has some associated chest tightness. Has a sedentary job and endorses recent travel but it was only 3-[address] to [place] and [place]. Is not on control. Does have history of a RLE DVT diagnosed in Apr 2021 that she completed 6 months of Xarelto for and at that time repeat doppler without acute DVT. Factor V leiden: not detected. Father with history of May Thurner Syndrome on lifelong anticoagulation, per chart review. Aunt is also on anticoagulation but she is not sure of underlying reason. No F/C, lightheadedness, wheezing, N/V, abdominal pain, dysuria, diarrhea or constipation. Admission Exam Per Admitting Provider General Appearance: WD/WN, vitals as above, NAD, sitting up in bed, pleasant, obese, conversational dyspnea Respiratory: increased respiratory effort, lungs clear to auscultation, no wheeze, rales, rhonchi. No accessory muscle use Cardiovascular: regular rate, rhythm, no murmur, normal peripheral pulses, no BLE edema. Vessels: no JVD Chest: normal inspection of chest Abdomen/GI: normal bowel sounds, soft, nontender, no hepatosplenomegaly Extremities/Musculoskeletal: no cyanosis or clubbing, extremities motor strength 5/5 Neurologic: PERRL, EOMI, accommodation nl, no face palsy, no dysarthria, CN's II-XI intact bilaterally and moves all extremities Psychiatric: A+Ox3, euthymic affect Skin: no rashes, normal color, warm/dr Principal Diagnosis Bilateral PE Pulmonary hypertension Discharge Exam Constitutional: Alert orient x 3, morbidly obese. Respiratory: normal respiratory effort, lungs clear to auscultation, no wheeze, rales, rhonchi. Normal insp/exp effort, no accessory muscle use Cardiovascular: RRR, no murmur, no edema Vessels: no JVD or carotid bruit Chest: normal inspection of chest Abdomen: normal bowel sounds, soft, nontender, no hepatosplenomegaly Musculoskeletal: no cyanosis or clubbing, extremities motor strength 5/5 Skin: no rashes, warm and dry normal turgor Neurologic: PERRL, EOMI, accommodation nl, no face palsy, no dysarthria CN's II- XI intact bilaterally and moves all extremities Psychiatric: A+Ox3, euthymic affect Discharge Data Allergies Allergy/AdvReac Type Severity Reaction Status Date / Time No Known Allergies Allergy Verified 03/08/23 20:18 Consultations 03/08/23 20:14 ED Decision to Admit Stat Ordered Studies 03/08/23 17:42 CT angio chest PE protocol Stat 03/08/23 21:06 US venous doppler LE Stat Hospital Course (1) Pulmonary emboli: (2) Elevated troponin: (3) Morbid obesity with BMI of 45.0-49.9, adult: (4) Pulmonary hypertension: Plan This is a 42yo F with a PMH of RLE DVT, obesity who presents with shortness of breath over the past 3-4 days and was found to have extensive pulmonary emboli. CTA chest on admission; multiple filling defects present in main left and right pulmonary artery extending into all lobar branches. High sensitive troponin elevated to 48.9, down trended to 19.5 EKG - sinus rhythm with occasional PVCs. QTc of 487 Echocardiogram suggestive of right heart strain. Severe pulmonary hypertension present with pulmonary artery systolic pressure of 70 to 75 mmHg. Venous duplex shows chronic appearing thrombosis in right posterior tibial veins. Also present in left femoral vein and left popliteal vein. During the hospitalization, patient was started on anticoagulation with heparin and Lovenox. She was switched over to Xarelto at discharge. Discussed with cardiology regarding the finding of the echocardiogram. Patient will need outpatient echocardiogram in 3 months to follow-up on severe pulmonary hypertension. Patient will likely need lifelong anticoagulation for the bilateral unprovoked PE patient will need age-appropriate cancer screening as outpatient as well as hematology referral for hypercoagulable workup. Please note the above document was generated using voice recognition software. It may contain grammatical, syntax or spelling errors. Any formal questions or concerns about the content, text or information contained within the body of this dictation should be directly addressed to the provider for clarification Total Time Total Time Spent Total Time Spent (In Minutes): 45 Total Time Includes: Examination of the Patient, Discharge Planning, Medication Reconciliation, Communication With Other Providers and Other Discharge Plan Discharge Items Patient Disposition: Home - Self-Care Reason For Visit: PE Discharge Diagnosis: Bilateral pulmonary embolism Bilateral lower extremity DVT Activity: Resume your previous activity Non-emergency contact: Primary Care Provider Call non-emergency contact if: you have any medication questions and your symptoms worsen Follow-up/Referrals: PCP,NO [Primary Care Provider] - Diet: Regular Addtl Attending Provider Instructions: You were admitted to the hospital due to blood clots in the lungs and bilateral legs. You are prescribed Xarelto (blood thinner) to be taken as instructed below: 1) take 15 mg twice a day starting with dinner today for 21 days(till March 30, 2023), then 2) take 20 mg once a day then after( From March 31, 2023) Please take Xarelto with meals. Please follow-up with your primary care doctor next week. You will need repeat echocardiogram to be done in about 10 to 12 weeks to follow-up on your heart function. Pending Studies at Discharge: No Stand-Alone Forms: My [employer], Smoking Cessation Medications and DC Order Prescriptions: New Xarelto DVT-PE Treat 30d Start 15 mg (42)- 20 mg (9) tablets,dose pack See Rx Instructions .ROUTE .COMPLEX Qty: 51 0RF Rx Instructions: take one-15 mg tablet twice daily for 21 days, then one-20 mg tablet once daily; must take with meal/food Continued multivitamin Tablet 1 tab PO DAILY ascorbic acid (vitamin C) [Vitamin C] 500 mg Tablet 500 mg PO DAILY Msm Powder 1 dose PO DAILY Rx Instructions: MIXES 1/4 TSP IN FLUID QAM. Discharge Orders: Discharge Order (Routine); Ordered 03/10/23 Ordered By: Antwan Hudson Admission Data Admit Date/Time: 03/08/23 22:01 Attending Provider: Krystal Pyle Admit Provider: Donaldo Parker Primary Care Provider: PCP,NO Other Providers: Donaldo Parker Other Interventions: Discharge Summary Assessment (RN) Last Done: 03/10/23 12:21
== END 2023-03-10 16:06 | disposition home or self-care (01) | DRG 176 ==
LOC: ED 17:32 → SUATTDRO 22:01 → EDINP 22:01 → 2N 03-09 00:38